=== PATIENT | female | born 1985 | race American Indian/Alaskan Native ===

== ENCOUNTER 2020-08-22 04:38 | Emergency (ER) | payer SELFPAY ==
--- NOTE | 2020-08-22 06:23 | Emergency Department Report ---
HPI - General Chief Complaint: Arrhythmia/Palpitations Time Seen by Provider: 08/22/20 06:03 - HPI HPI: This is a 34-year-old -[place] female presents to the emergency department from home with complaint of having some heart racing palpitations, a nd some muscle spasms/tremors. Overall this has been going on since last night. Initially she had some mild left-sided facial and head pain. This patient has been in the emergency department for about 1 hour and 20 minutes prior to my shift starting. At the time of my initial examination she says that her symptoms have resolved. She did have EMS come out to evaluate her at her home but declined transport to the hospital. No treatment was provided. She has not taken anything for symptoms prior to presentation. No PCP. She denies any tobacco use, illicit drug use. She did have some alcohol use last night but says that she did not get drunk. She denies any history of alcohol dependence or withdrawals. Only recent travel has been to a few surrounding states. She denies any fever, chest pain, lower extremity swelling, abdominal pain, nausea, vomiting. She did have some shortness of breath when the palpitations first began but that has since resolved as well. ED Past Medical Hx - Past Medical History Previous Medical History?: No - Surgical History Past Surgical History?: No - Social History Smoking Status: Never Smoker Substance Use Type: None ED Review of Systems ROS: Stated complaint: HYPERVENTILATING Other details as noted in HPI Comment: Unobtainable due to pts medical conditions Constitutional: denies: chills, fever Eyes: denies: eye pain, vision change ENT: denies: ear pain, throat pain Respiratory: shortness of breath (Resolved). denies: cough Cardiovascular: palpitations (Resolved). denies: chest pain, edema Gastrointestinal: denies: abdominal pain, vomiting Genitourinary: denies: dysuria, discharge Musculoskeletal: myalgia. denies: joint swelling Skin: denies: rash, lesions Neurological: headache (Resolved). denies: weakness, numbness, paresthesias Physical Exam - Physical Exam Vital Signs: Vital Signs 08/22/20 08/22/20 05:07 06:00 Temperature 99.9 F H Pulse Rate 118 H 98 H Respiratory 18 20 Rate Blood Pressure 121/65 124/65 O2 Sat by Pulse 100 100 Oximetry Physical Exam: GENERAL: The patient is well-developed well-nourished. HENT: Normocephalic. Atraumatic. Patient has moist mucous membranes. EYES: Extraocular motions are intact. No nystagmus. NECK: Supple. Trachea is midline. CHEST/LUNGS: Clear to auscultation. There is no respiratory distress noted. HEART/CARDIOVASCULAR: Regular. There is no tachycardia. There is no murmur. ABDOMEN: Abdomen is soft, nontender. Patient has normal bowel sounds. There is no abdominal distention. SKIN: Skin is warm and dry. NEURO: The patient is awake, alert, and oriented. The patient is cooperative. The patient has no focal neurologic deficits. Normal speech. Cranial nerves II through XII grossly intact. No pronator drift or dysmetria. MUSCULOSKELETAL: There is no tenderness or deformity. There is no limitation range of motion. Muscle strength 5 out of 5 upper and lower extremities bilaterally. ED Course Vital Signs 08/22/20 08/22/20 05:07 06:00 Temperature 99.9 F H Pulse Rate 118 H 98 H Respiratory 18 20 Rate Blood Pressure 121/65 124/65 O2 Sat by Pulse 100 100 Oximetry ED Medical Decision Making - Lab Data Result diagrams: 08/22/20 05:54 08/22/20 05:54 Lab Results 08/22/20 08/22/20 08/22/20 Range/Units 05:54 05:54 05:54 WBC 6.8 (4.5-11.0) K/mm3 RBC 4.21 (3.65-5.03) M/mm3 Hgb 12.3 (10.1-14.3) gm/dl Hct 36.9 (30.3-42.9) % MCV 88 (79-97) fl MCH 29 (28-32) pg MCHC 33 (30-34) % RDW 14.9 (13.2-15.2) % Plt Count 213 (140-440) K/mm3 Lymph % (Auto) 19.0 (13.4-35.0) % [place]offey % (Auto) 7.3 (0.0-7.3) % Eos % (Auto) 0.5 (0.0-4.3) % Baso % (Auto) 0.4 (0.0-1.8) % Lymph # (Auto) 1.3 (1.2-5.4) K/mm3 Coffey # (Auto) 0.5 (0.0-0.8) K/mm3 Eos # (Auto) 0.0 (0.0-0.4) K/mm3 Baso # (Auto) 0.0 (0.0-0.1) K/mm3 Seg Neutrophils % 72.8 H (40.0-70.0) % Seg Neutrophils # 5.0 (1.8-7.7) K/mm3 Sodium 135 L (137-145) mmol/L Potassium 3.4 L (3.6-5.0) mmol/L Chloride 98.9 (98-107) mmol/L Carbon Dioxide 23 (22-30) mmol/L Anion Gap 17 mmol/L BUN 9 (7-17) mg/dL Creatinine 0.9 (0.6-1.2) mg/dL Estimated GFR > 60 ml/min BUN/Creatinine Ratio 10 % Glucose 106 H (65-100) mg/dL Calcium 9.1 (8.4-10.2) mg/dL Magnesium (1.7-2.3) mg/dL Total Bilirubin (0.1-1.2) mg/dL Direct Bilirubin (0-0.2) mg/dL Indirect Bilirubin mg/dL AST (5-40) units/L ALT (7-56) units/L Alkaline Phosphatase (35-129) units/L Total Protein (6.3-8.2) g/dL Albumin (3.9-5) g/dL Albumin/Globulin Ratio % TSH (0.270-4.200) mlU/mL HCG, Qual Negative (Negative) Urine Color (Yellow) Urine Turbidity (Clear) Urine pH (5.0-7.0) Ur Specific [place] (1.003-1.030) Urine Protein (Negative) mg/dL Urine Glucose (UA) (Negative) mg/dL Urine Ketones (Negative) mg/dL Urine Blood (Negative) Urine Nitrite (Negative) Urine Bilirubin (Negative) Urine Urobilinogen (<2.0) mg/dL Ur Leukocyte Esterase (Negative) Urine WBC (Auto) (0.0-6.0) /HPF Urine RBC (Auto) (0.0-6.0) /HPF U Epithel Cells (Auto) (0-13.0) /HPF Urine Mucus /HPF 08/22/20 08/22/20 08/22/20 Range/Units 06:09 06:09 07:00 WBC (4.5-11.0) K/mm3 RBC (3.65-5.03) M/mm3 Hgb (10.1-14.3) gm/dl Hct (30.3-42.9) % MCV (79-97) fl MCH (28-32) pg MCHC (30-34) % RDW (13.2-15.2) % Plt Count (140-440) K/mm3 Lymph % (Auto) (13.4-35.0) % Coffey % (Auto) (0.0-7.3) % Eos % (Auto) (0.0-4.3) % Baso % (Auto) (0.0-1.8) % Lymph # (Auto) (1.2-5.4) K/mm3 [place]offey # (Auto) (0.0-0.8) K/mm3 Eos # (Auto) (0.0-0.4) K/mm3 Baso # (Auto) (0.0-0.1) K/mm3 Seg Neutrophils % (40.0-70.0) % Seg Neutrophils # (1.8-7.7) K/mm3 Sodium (137-145) mmol/L Potassium (3.6-5.0) mmol/L Chloride (98-107) mmol/L Carbon Dioxide (22-30) mmol/L Anion Gap mmol/L BUN (7-17) mg/dL Creatinine (0.6-1.2) mg/dL Estimated GFR ml/min BUN/Creatinine Ratio % Glucose (65-100) mg/dL Calcium (8.4-10.2) mg/dL Magnesium 1.90 (1.7-2.3) mg/dL Total Bilirubin 0.50 (0.1-1.2) mg/dL Direct Bilirubin < 0.2 (0-0.2) mg/dL Indirect Bilirubin 0.3 mg/dL AST 13 (5-40) units/L ALT 11 (7-56) units/L Alkaline Phosphatase 58 (35-129) units/L Total Protein 6.7 (6.3-8.2) g/dL Albumin 4.4 (3.9-5) g/dL Albumin/Globulin Ratio 1.9 % TSH 1.180 (0.270-4.200) mlU/mL HCG, Qual (Negative) Urine Color Straw (Yellow) Urine Turbidity Clear (Clear) Urine pH 6.0 (5.0-7.0) Ur Specific [place] 1.006 (1.003-1.030) Urine Protein <15 mg/dl (Negative) mg/dL Urine Glucose (UA) Neg (Negative) mg/dL Urine Ketones Neg (Negative) mg/dL Urine Blood Neg (Negative) Urine Nitrite Neg (Negative) Urine Bilirubin Neg (Negative) Urine Urobilinogen < 2.0 (<2.0) mg/dL Ur Leukocyte Esterase Neg (Negative) Urine WBC (Auto) 2.0 (0.0-6.0) /HPF Urine RBC (Auto) 1.0 (0.0-6.0) /HPF U Epithel Cells (Auto) < 1.0 (0-13.0) /HPF Urine Mucus Few /HPF - EKG Data -: EKG Interpreted by [place] EKG shows normal: sinus rhythm (PVCs), axis, intervals, QRS complexes, ST-T waves Rate: tachycardia (119 bpm) - EKG Data When compared to previous EKG there are: previous EKG unavailable Interpretation: normal EKG (With PVCs and tachycardia at [address] elevation RI.) - Medical Decision Making This patient presented to the emergency department with a complaint of palpitations and some type of muscle spasm/tremors. She also had slight left- sided facial and neck pain that started earlier this morning but has since resolved without treatment. On examination the patient does not have any focal, motor or sensory deficits and her cranial nerves are intact. Heart and lung sounds are normal to auscultation. The patient does not appear in any respiratory or acute distress. EKG does not show any morphology consistent with ST elevation myocardial infarction or any arrhythmia. The patient's labs have been mostly unremarkable including CBC, metabolic panel, normal thyroid function, urinalysis and the patient is not . Her potassium level was slightly low at 3.4 so she was given 20 mEq of potassium chloride. The patient's vital signs have been reassuring throughout her ED course. She had some initial tachycardia that resolved prior to my initial examination. The patient was reevaluated multiple times over multiple hours and has not had any return of her previous symptoms. For all these reasons the patient appears safe for discharge home at this time. She has been given outpatient referral for primary care and cardiology. She will return to the emergency department with any worsening of her symptoms or with any acute distress. Critical Care Time: No Critical care attestation.: If time is entered above; I have spent that time in minutes in the direct care of this critically ill patient, excluding procedure time. ED Disposition Clinical Impression: Palpitations, Muscle spasm Disposition: DC-01 TO HOME OR SELFCARE Is pt being admited?: No Condition: Stable Instructions: Muscle Cramps and Spasms, Palpitations Additional Instructions: Please follow-up with a primary care physician in the next few days. I have given you a referral for a local primary care physician, Dr. Roblero, as well as a primary care clinic. I have also given you a referral for a local [employer] [employer] staff officer, Dr. Vazquez, to follow- up regarding your palpitations. Please avoid any excessive caffeine use. Make sure to stay hydrated. Try to get 8 hours of uninterrupted sleep at night. Return to the emergency department with any worsening of your symptoms, new or concerning symptoms not addressed during this current emergency department visit, or with any acute distress. Referrals: NEHAL ROBLERO MD [Staff Physician] - 2-3 Days ROD VAZQUEZ MD [Staff Physician] - 2-3 Days [facility] [Provider Group] - 2-3 Days Time of Disposition: 07:41 - Assessment Assessment Interval: Baseline - Level of Consciousness 1a. Level of Consciousness: alert/keenly responsive - LOC Questions 1b. LOC Questions: answers both correctly - LOC Command 1c. LOC Commands: performs tasks correctly - Best Gaze 2. Best Gaze: normal - Visual 3. Visual: no visual loss - Facial Palsy 4. Facial Palsy: normal symmetrical movement - Motor Arm 5a. Motor Arm Left: no drift 5b. Motor Arm Right: no drift - Motor Leg 6a. Motor Leg Left: no drift 6b. Motor Leg Right: no drift - Limb Ataxia 7. Limb Ataxia: absent - Sensory 8. Sensory: normal - Best Language 9. Best Language: no aphasia - Dysarthria 10. Dysarthria: normal - Extinction and Inattention 11. Extinction/Inattention: no abnormality - Scoring Total Score: 0 Stroke Severity: No Stroke Symptoms
[2020-08-22 06:49] LABS: Basophils % (Auto) 0.4 % (0.0-1.8); Eosinophils % (Auto) 0.5 % (0.0-4.3); Hematocrit 36.9 % (30.3-42.9); Hemoglobin 12.3 gm/dl (10.1-14.3); Lymphocytes # (Auto) 1.3 K/mm3 (1.2-5.4); Mean Corpuscular HGB Conc 33 % (30-34); Mean Corpuscular Volume 88 fl (79-97); Monocytes # (Auto) 0.5 K/mm3 (0.0-0.8); Monocytes % (Auto) 7.3 % (0.0-7.3); Platelet Count 213 K/mm3 (140-440); Red Blood Count 4.21 M/mm3 (3.65-5.03); Red Cell Distribution Width 14.9 % (13.2-15.2)
[2020-08-22 07:01] LABS: BUN/Creatinine Ratio 10; Blood Urea Nitrogen 9 mg/dL (7-17); Calcium 9.1 mg/dL (8.4-10.2); Hemolysis Index 1
[2020-08-22 07:01] LABS: Alanine Aminotransferase 11 units/L (7-56); Albumin 4.4 g/dL (3.9-5)
[2020-08-22 07:02] LABS: Bilirubin,Direct < 0.2 mg/dL (0-0.2)
[2020-08-22] MEDS ORDERED: POTASSIUM CHLORIDE ER 20 MEQ TAB PO ONE (07:07)
[2020-08-22 07:29] LABS: Bilirubin,Urine NEG (Negative); Blood,Urine NEG (Negative); Color,Urine Straw (Yellow); Mucus,Urine FEW /HPF; Protein,Urine <15 mg/dL mg/dL (Negative); Urobilinogen,Urine < 2.0 mg/dL (<2.0)
[2020-08-22 07:49] VITALS: BP 115/60
--- NOTE | 2020-08-26 12:57 | Electrocardiograph Report ---
[facility] Test Date: 2020-08-22 Test Time: 05:13:09 Pat Name: JOSUÉ MORGAN Department: Room: Gender: F [employer]: RADHA : 1985 Requested By: RAO CLEARY Order Number: [id number] Reading MD: Chris Iverson Measurements Intervals Wood Rate: 119 P: 52 AL: 116 QRS: 27 QRSD: 87 T: 16 QT: 319 QTc: 449 Interpretive Statements Sinus tachycardia Probable left atrial enlargement No previous ECG available for comparison Electronically Signed On 08-26-2020 12:57:22 EDT by Chris Iverson
== END 2020-08-22 07:49 | disposition home or self-care (01) ==
LOC: ED 04:38
DX: R00.2 Palpitations (principal); M62.838 Other muscle spasm; R51.9 Headache, unspecified
CPT/HCPCS: 36415; 80048; 80076; 81001; 83735; 84443; 84703; 85025; 93005; 99284